=== PATIENT | female | born 2000 | race Caucasian/White ===

== ENCOUNTER 2018-02-14 12:45 | Emergency (ER) | payer MEDICAID ==
[2018-02-14 15:57] LABS: ADD MAN DIFF? NO
[2018-02-14 15:59] LABS: BASOPHILS % 0.5 % (0.0-2.0); EOSINOPHILS # 0.1 10^3/ul (0.0-0.5); HEMATOCRIT 32.7 % (37.0-47.0); HEMOGLOBIN 11.3 g/dl (12.0-16.0); LYMPHOCYTES # 1.9 10^3/ul (0.8-2.9); LYMPHOCYTES % 23.4 % (18.0-55.0); MEAN CORPUSCULAR HEMOGLOBIN 30.5 pg (29.0-33.0); MEAN CORPUSCULAR HGB CONC 34.6 g/dl (32.0-37.0); MEAN CORPUSCULAR VOLUME 88.1 fl (72.0-104.0); MEAN PLATELET VOLUME 10.9 fl (7.4-10.4); MONOCYTE # 0.5 10^3/ul (0.3-0.9); MONOCYTES % 6.4 % (0.0-13.0); NEUTROPHIL # 5.6 10^3/ul (1.6-7.5); NEUTROPHILS % 67.9 % (30.0-74.0); PLATELET COUNT 210 10^3/UL (140-415); RED BLOOD COUNT 3.71 10^6/ul (4.20-5.40); RED CELL DISTRIBUTION WIDTH 13.3 % (11.5-14.5)
[2018-02-14 15:59] LABS: WHITE BLOOD COUNT 8.2 10^3/ul (4.8-10.8)
[2018-02-14 16:10] LABS: ADD UMIC YES; UR ASCORBIC ACID 40 mg/dL (NEGATIVE); UR BILIRUBIN (Dip) NEGATIVE (NEGATIVE); UR BLOOD (Dip) NEGATIVE (NEGATIVE); UR CLARITY CLOUDY (CLEAR); UR COLOR YELLOW (YELLOW); UR GLUCOSE (Dip) NEGATIVE (NEGATIVE); UR KETONES (Dip) NEGATIVE (NEGATIVE); UR LEUKOCYTE ESTERASE (Dip) NEGATIVE Leu/ul (NEGATIVE); UR MUCUS FEW /HPF (NONE SEEN); UR NITRITE (Dip) NEGATIVE (NEGATIVE); UR RBC 0 /HPF (0-5); UR SPECIFIC GRAVITY (Dip) 1.018 (1.003-1.030); UR TOTAL PROTEIN (Dip) NEGATIVE (NEGATIVE); UR UROBILINOGEN (Dip) NEGATIVE (NEGATIVE); UR WBC 0 /HPF (0-5)
== END 2018-02-14 16:47 | disposition home or self-care (01) ==
LOC: FTE 12:45
DX: O26.892 Other specified pregnancy related conditions, second trimester (principal); R10.9 Unspecified abdominal pain; R10.2 Pelvic and perineal pain; Z3A.15 15 weeks gestation of pregnancy
CPT/HCPCS: 36415; 76805; 81001; 84702; 85025; 86900; 86901; 99284-25

== ENCOUNTER 2018-08-03 18:07 | Inpatient (IN) | payer OTHER ==
[2018-08-03] MEDS ORDERED: CARBOPROST 250 MCG INJ IM (21:30)
[2018-08-03] MEDS ORDERED: OXYTOCIN 30 UNITS/LR 500 ML IV ×2 (21:30)
[2018-08-03] MEDS ORDERED: LIDOCAINE 1% (MPF) 30 ML INJ INJ (21:30)
[2018-08-03] MEDS ORDERED: IBUPROFEN 600 MG TAB PO (21:30)
[2018-08-03] MEDS ORDERED: MISOPROSTOL 200 MCG TAB PR (21:30)
[2018-08-03] MEDS ORDERED: BUTORPHANOL 2 MG INJ IV (21:30)
[2018-08-03] MEDS: LACTATED RINGER'S 1,000 ML IV (22:22)
[2018-08-03 22:33] LABS: ADD MAN DIFF? NO
[2018-08-03 22:34] LABS: BASOPHIL # 0.1 10^3/ul (0.0-0.1); BASOPHILS % 0.6 % (0.0-2.0); EOSINOPHILS # 0.1 10^3/ul (0.0-0.5); EOSINOPHILS % 1.1 % (0.0-7.0); HEMATOCRIT 39.6 % (37.0-47.0); HEMOGLOBIN 13.3 g/dl (12.0-16.0); LYMPHOCYTES # 2.2 10^3/ul (0.8-2.9); LYMPHOCYTES % 26.3 % (18.0-55.0); MEAN CORPUSCULAR HEMOGLOBIN 30.4 pg (29.0-33.0); MEAN CORPUSCULAR HGB CONC 33.6 g/dl (32.0-37.0); MEAN CORPUSCULAR VOLUME 90.4 fl (72.0-104.0); MEAN PLATELET VOLUME 11.9 fl (7.4-10.4); MONOCYTE # 0.8 10^3/ul (0.3-0.9); MONOCYTES % 9.4 % (0.0-13.0); NEUTROPHILS % 61.6 % (30.0-74.0); PLATELET COUNT 151 10^3/UL (140-415); RED BLOOD COUNT 4.38 10^6/ul (4.20-5.40); RED CELL DISTRIBUTION WIDTH 14.1 % (11.5-14.5)
[2018-08-03 22:34] LABS: WHITE BLOOD COUNT 8.2 10^3/ul (4.8-10.8)
[2018-08-03 22:54] LABS: INR 0.88; PT RATIO 0.9
[2018-08-03 22:55] LABS: PARTIAL THROMBOPLASTIN TIME 27.5 Sec (23.0-35.0)
[2018-08-03 23:23] LABS: HEPATITIS B SURFACE ANTIGEN NEGATIVE (NEGATIVE)
[2018-08-03] MEDS: MISOPROSTOL 50 MCG CAPSULE PO (23:26)
[2018-08-04] MEDS: LACTATED RINGER'S 1,000 ML IV ×2 (04:03→12:18)
[2018-08-04] MEDS: MISOPROSTOL 50 MCG CAPSULE PO (05:45)
[2018-08-04] MEDS: OXYTOCIN 30 UNITS/LR 500 ML IV ×2 (10:54→16:25)
[2018-08-04 12:25] LABS: ALANINE AMINOTRANSFERASE 18 IU/L (13-69); ALBUMIN 3.6 g/dl (3.3-4.9); ALKALINE PHOSPHATASE 264 IU/L (42-121); ANION GAP 10 (5-13); ASPARTATE AMINO TRANSFERASE 36 IU/L (15-46); BILIRUBIN,INDIRECT 0.1 mg/dl (0-1.1); BILIRUBIN,TOTAL 0.1 mg/dl (0.2-1.3); BLOOD UREA NITROGEN 8 mg/dl (7-20); CALCIUM 9.2 mg/dl (8.4-10.2); CARBON DIOXIDE 21 mmol/L (21-31); CHLORIDE 106 mmol/L (97-110); CREATININE 0.42 mg/dl (0.44-1.00); Estimated GFR > 60 mL/min (>60); GLUCOSE 65 mg/dl (70-220); POTASSIUM 3.8 mmol/L (3.5-5.1); SODIUM 137 mmol/L (135-144); TOTAL PROTEIN 6.6 g/dl (6.1-8.1); URIC ACID 5.2 mg/dl (3.1-7.9)
[2018-08-04] MEDS ORDERED: ONDANSETRON 4 MG INJ IV (12:30)
[2018-08-04] MEDS ORDERED: ZOLPIDEM 5 MG TAB PO ×2 (12:30→17:30)
[2018-08-04] MEDS ORDERED: HYDROmorphONE 0.5 MG/0.5 ML SYG IV ×2 (12:30)
[2018-08-04] MEDS ORDERED: KETOROLAC 30 MG INJ IV (12:30)
[2018-08-04] MEDS ORDERED: DIPHENHYDRAMINE 50 MG INJ IV ×2 (12:30→17:30)
[2018-08-04] MEDS ORDERED: FENTAnyl 2MCG/ML-ROPIV 0.2% 100 ML BAG EPI (12:30)
[2018-08-04] MEDS ORDERED: NALOXONE (0.4 MG/ML) INJ IV (12:30)
[2018-08-04] MEDS: DEXTROSE 5%-LR 1,000 ML IV (14:55)
[2018-08-04 14:58] LABS: ADD UMIC NO; UR ASCORBIC ACID NEGATIVE (NEGATIVE); UR BILIRUBIN (Dip) NEGATIVE (NEGATIVE); UR BLOOD (Dip) NEGATIVE (NEGATIVE); UR CLARITY CLEAR (CLEAR); UR COLOR STRAW (YELLOW); UR GLUCOSE (Dip) NEGATIVE (NEGATIVE); UR KETONES (Dip) TRACE mg/dL (NEGATIVE); UR LEUKOCYTE ESTERASE (Dip) NEGATIVE Leu/ul (NEGATIVE); UR NITRITE (Dip) NEGATIVE (NEGATIVE); UR SPECIFIC GRAVITY (Dip) 1.009 (1.003-1.030); UR TOTAL PROTEIN (Dip) NEGATIVE (NEGATIVE); UR UROBILINOGEN (Dip) NEGATIVE (NEGATIVE)
[2018-08-04] MEDS: MINERAL OIL LIGHT 10 ML VIAL TOP (16:10)
[2018-08-04] MEDS: METHYLERGONOVINE 0.2 MG INJ IM (16:11)
[2018-08-04 16:42] LABS: RAPID PLASMA REAGIN NONREACTIVE (NR)
[2018-08-04] MEDS ORDERED: OXYTOCIN 30 UNITS/LR 500 ML IV (17:30)
[2018-08-04] MEDS ORDERED: ACETAMINOPHEN 325 MG TAB PO (17:30)
[2018-08-04] MEDS ORDERED: MISOPROSTOL 200 MCG TAB PR (17:30)
[2018-08-04] MEDS ORDERED: DIBUCAINE 1% 30 GM OINT TOP (17:30)
[2018-08-04] MEDS ORDERED: SENNA/DOCUSATE NA (8.6MG/50MG) TAB PO (17:30)
[2018-08-04] MEDS ORDERED: CARBOPROST 250 MCG INJ IM (17:30)
[2018-08-04] MEDS ORDERED: METHYLERGONOVINE 0.2 MG INJ IM (17:30)
[2018-08-04] MEDS: IBUPROFEN 600 MG TAB PO (18:33)
[2018-08-04] MEDS: WITCH HAZEL/GLYCERIN PAD PR (18:34)
[2018-08-04] MEDS: BENZOCAINE 20% 56 ML SPRAY TOP (18:34)
[2018-08-04] MEDS: ONDANSETRON 4 MG INJ IV (21:09)
[2018-08-05] MEDS: IBUPROFEN 600 MG TAB PO ×5 (00:43→23:39)
[2018-08-05] MEDS: LACTATED RINGER'S 1,000 ML IV* ×3 (00:43→09:17)
[2018-08-05] MEDS: DEXTROSE 5%-LR 1,000 ML IV ×2 (01:17→14:57)
[2018-08-05] MEDS: OXYCODONE/ASPIRIN (4.88/325) TAB PO (05:16)
[2018-08-05 08:14] LABS: ADD MAN DIFF? NO
[2018-08-05 08:28] LABS: BASOPHIL # 0.1 10^3/ul (0.0-0.1); BASOPHILS % 0.3 % (0.0-2.0); EOSINOPHILS # 0.1 10^3/ul (0.0-0.5); EOSINOPHILS % 0.4 % (0.0-7.0); HEMATOCRIT 27.9 % (37.0-47.0); HEMOGLOBIN 9.5 g/dl (12.0-16.0); LYMPHOCYTES # 2.1 10^3/ul (0.8-2.9); LYMPHOCYTES % 14.4 % (18.0-55.0); MEAN CORPUSCULAR HEMOGLOBIN 30.9 pg (29.0-33.0); MEAN CORPUSCULAR HGB CONC 34.1 g/dl (32.0-37.0); MEAN CORPUSCULAR VOLUME 90.9 fl (72.0-104.0); MEAN PLATELET VOLUME 12.3 fl (7.4-10.4); NEUTROPHIL # 11.4 10^3/ul (1.6-7.5); NEUTROPHILS % 77.2 % (30.0-74.0); PLATELET COUNT 112 10^3/UL (140-415); RED BLOOD COUNT 3.07 10^6/ul (4.20-5.40); RED CELL DISTRIBUTION WIDTH 14.5 % (11.5-14.5)
[2018-08-05 08:28] LABS: WHITE BLOOD COUNT 14.7 10^3/ul (4.8-10.8)
[2018-08-05] MEDS: LANOLIN HPA 1 PKT TOP (23:41)
[2018-08-06] MEDS: IBUPROFEN 600 MG TAB PO ×2 (05:49→12:54)
[2018-08-06] MEDS: INFLUENZA VIRUS VACCINE 0.5 ML (DISPENSING) IM* (07:33)
[2018-08-06] MEDS: MEASLES,MUMPS,RUBELLA VACCINE INJ SC* (09:03)
[2018-08-06] MEDS: DIPHTH/TET/ACEL PERTUSS (ADULT) 0.5 ML VIAL IM* (10:38)
== END 2018-08-06 15:10 | disposition home or self-care (01) | DRG 807 ==
LOC: OBT 18:07 → L-D 18:08 → PP1 08-04 17:50 → OBT 20:40 → L-D 20:40
PROVIDERS: Obstetrics & Gynecology
PROC: 10E0XZZ Delivery of Products of Conception, External Approach (ICD-10-PCS; principal; 2018-08-04)
PROC: 0W8NXZZ Division of Female Perineum, External Approach (ICD-10-PCS; 2018-08-04)
DX: O36.5930 Maternal care for other known or suspected poor fetal growth, third trimester, not applicable or unspecified (principal); R33.9 Retention of urine, unspecified; O90.81 Anemia of the puerperium; D64.9 Anemia, unspecified; Z37.0 Single live birth; Z3A.39 39 weeks gestation of pregnancy; Z23 Encounter for immunization
CPT/HCPCS: 62319; 76815; 76818; 80053; 81003; 84560; 85025; 85610; 85730; 86592; 86850; 86900; 86901; 87086; 87340; 90715